=== PATIENT | male | born 1995 | race Hispanic/Latino ===

== ENCOUNTER 2021-08-25 09:13 | Emergency (ER) | payer SELFPAY ==
--- NOTE | 2021-08-25 09:52 | RAD REPORT ---
EXAM DESCRIPTION: CT - Head Brain Wo Cont - 08/25/2021 9:41 am CLINICAL HISTORY: HEADACHE COMPARISON: No comparisons TECHNIQUE: All CT scans are performed using dose optimization technique as appropriate and may inclu de automated exposure control or mA/KV adjustment according to patient size. FINDINGS: No intracranial hemorrhage, hydrocephalus or extra-axial fluid collection.No areas of brai n edema or evidence of midline shift. Partially opacified left maxillary sinus. This is likely the sequela of chronic sinusitis. The calvar ium is intact. IMPRESSION: No acute intracranial abnormality.
[2021-08-25] MEDS ORDERED: NA CHLORIDE 0.9% 1,000 ML ONE (10:01)
[2021-08-25 10:09] LABS: Absolute Lymphocytes (CBC) 1.3 K/uL (0.7-4.9); Basophils % 0.3 % (0-1.3); Hematocrit 38.9 % (39.6-49.0); Lymphocytes % 16.9 % (15.3-44.8); MPV 8.7 fL (7.6-11.3); RBC Red Blood Cell Count 4.79 M/uL (4.33-5.43)
[2021-08-25 10:23] LABS: BUN Blood Urea Nitrogen 10 mg/dL (7-18); Bicarbonate 27 mmol/L (21-32); Glucose Level 118 mg/dL (74-106); Potassium 3.8 mmol/L (3.5-5.1); Sodium Level 138 mmol/L (136-145)
[2021-08-25] MEDS ORDERED: KETOROLAC 30 MG/ML INJ ONE (10:46)
--- NOTE | 2021-08-25 11:33 | EDPHYS ---
Physician Documentation [facility] Name: Deshawn Cheung Age: 26 yrs Sex: Male : 1995 Arrival Date: 08/25/2021 Time: 09:14 Bed 12 Private MD: ED Physician Olayinka Fisher HPI: 08/25 16:51 This 26 yrs old Male presents to ER via Ambulatory with complaints of kb Headache, Weakness. 16:51 The patient complains of pain to the top of head. The patient describes the headache as kb constant. Onset: The symptoms/episode began/occurred 1 month(s) ago. Associated signs and symptoms: The patient has no apparent associated signs or symptoms. Severity of symptoms: At its worst the pain was mild, moderate, in the emergency department the pain is unchanged. Headache History: Denies prior headaches. The symptoms are alleviated by nothing. the symptoms are aggravated by activity. The patient has not experienced similar symptoms in the past. The patient has not recently seen a physician. Pt reports headache that has been constant for a month. Denies any other symptoms. Historical: - Allergies: 09:31 No Known Allergies; oh - Immunization history:: Adult Immunizations up to date. - Social history:: Patient uses street drugs, marijuana, Smoking status: Reported history of juuling and/or vaping. ROS: 16:51 Constitutional: Negative for fever, chills, and weight loss. kb 16:51 Neuro: Positive for headache. 16:51 All other systems are negative. Exam: 16:51 Constitutional: This is a well developed, well nourished patient who is awake, alert, kb and in no acute distress. Head/Face: Normocephalic, atraumatic. Eyes: Pupils equal round and reactive to light, extra-ocular motions intact. Lids and lashes normal. Conjunctiva and sclera are non-icteric and not injected. Cornea within normal limits. Periorbital areas with no swelling, redness, or edema. ENT: Moist Mucous membranes Cardiovascular: Regular rate and rhythm with a normal S1 and S2. No gallops, murmurs, or rubs. No pulse deficits. Respiratory: Respirations even and unlabored. No increased work of breathing, no retractions or nasal flaring. Skin: Warm, dry with normal turgor. Normal color. MS/ Extremity: Pulses equal, no cyanosis. Neurovascular intact. Full, normal range of motion. Neuro: Awake and alert, GCS 15, oriented to person, place, time, and situation. Moves all extremities. Normal gait. Psych: Awake, alert, with orientation to person, place and time. Behavior, mood, and affect are within normal limits. Vital Signs: 09:29 BP 119 / 88; Pulse 83; Resp 17; Temp 98.6; Pulse Ox 100% on R/A; oh 09:32 Weight 99.79 kg; Height 5 ft. 11 in. (180.34 cm); Pain 5/10; sv 11:41 BP 122 / 66; oh 09:32 Body Mass Index 30.68 (99.79 kg, 180.34 cm) sv Elliott Coma Score: 16:50 Eye Response: spontaneous(4). Verbal Response: oriented(5). Motor Response: obeys kb commands(6). Total: 15. MDM: 09:28 Patient medically screened. kb 16:50 Data reviewed: vital signs, nurses notes. Data interpreted: Pulse oximetry: on room air kb is 100 %. Interpretation: normal. Counseling: I had a detailed discussion with the patient and/or guardian regarding: the historical points, exam findings, and any diagnostic results supporting the discharge/admit diagnosis, lab results, radiology results, the need for outpatient follow up, a family practitioner, a neurologist, to return to the emergency department if symptoms worsen or persist or if there are any questions or concerns that arise at home. 08/25 09:31 Order name: CBC with Diff kb 08/25 09:31 Order name: Basic Metabolic Panel kb 08/25 09:31 Order name: CT Head Brain wo Cont; Complete Time: 10:14 kb 08/25 09:32 Order name: CBC with Automated Diff; Complete Time: 10:14 EDMS 08/25 09:32 Order name: Basic Metabolic Panel; Complete Time: 10:28 EDMS 08/25 09:31 Order name: IV Start; Complete Time: 09:53 kb Administered Medications: 09:50 Drug: NS 0.9% 1000 ml Route: IV; Rate: 1000 ml; Site: right antecubital; oh 10:25 Drug: Ketorolac 30 mg Route: IVP; Site: right antecubital; oh 11:43 Follow up: Response: No adverse reaction oh Disposition: 18:34 Co-signature as Attending Physician, Olayinka Fisher MD I agree with the assessment and rn plan of care. Attestation: The patient's history, exam findings, diagnostics, and a summary of any interventions or procedures was reviewed in detail with Maryellen CARR. Disposition Summary: 08/25/21 11:32 Discharge Ordered Location: Home kb Condition: Stable kb Diagnosis - Headache kb Followup: kb - With: Emergency Department - When: As needed - Reason: Worsening of condition Followup: kb - With: Private Physician - When: 2 - 3 days - Reason: Recheck today's complaints, Continuance of care, Re-evaluation by your physician Discharge Instructions: - Discharge Summary Sheet kb - General Headache Without Cause, Pust-gi-Amtl kb Forms: - Medication Reconciliation Form kb - Thank You Letter kb - Antibiotic Education kb - Prescription Opioid Use kb Signatures: Dispatcher [employer] EDMaryellen Sierra FNP-C FNP-Kavita Davis RN RN sv Nieto, Roman, MD MD rn Harriott, Oneka, RN RN oh
--- NOTE | 2021-08-25 11:33 | ER ---
Nurse's Notes [facility] Name: Deshawn Cheung Age: 26 yrs Sex: Male : 1995 Arrival Date: 08/25/2021 Time: 09:14 Bed 12 Private MD: Diagnosis: Headache Presentation: 08/25 09:32 Chief complaint: Patient states: migraine x 1 month with increased pressure when he sv sits up or raises eyebrows. Coronavirus screen: Vaccine status: Patient reports being unvaccinated. Client denies travel out of the [place] in the last 14 days. Ebola Screen: No symptoms or risks identified at this time. Initial Sepsis Screen: Does the patient meet any 2 criteria? No. Patient's initial sepsis screen is negative. Does the patient have a suspected source of infection? No. Patient's initial sepsis screen is negative. Risk Assessment: Do you want to hurt yourself or someone else? Patient reports no desire to harm self or others. Onset of symptoms was July 2021. 09:32 Method Of Arrival: Ambulatory sv 09:32 Acuity: ALEJO 4 sv Triage Assessment: 11:42 General: Appears comfortable, Behavior is calm, cooperative, appropriate for age. oh 11:42 Headache History: Denies prior headaches. oh 11:44 Pain: Pain Pain began weeks. oh Historical: - Allergies: 09:31 No Known Allergies; oh - Immunization history:: Adult Immunizations up to date. - Social history:: Patient uses street drugs, marijuana, Smoking status: Reported history of juuling and/or vaping. Screenin:32 Abuse screen: Denies threats or abuse. Nutritional screening: No deficits noted. oh Tuberculosis screening: No symptoms or risk factors identified. Fall Risk None identified. Assessment: 09:29 Neuro: Reports headache since month, increase pressure when rising from supine position.oh Vital Signs: 09:29 BP 119 / 88; Pulse 83; Resp 17; Temp 98.6; Pulse Ox 100% on R/A; oh 09:32 Weight 99.79 kg; Height 5 ft. 11 in. (180.34 cm); Pain 5/10; sv 11:41 BP 122 / 66; oh 09:32 Body Mass Index 30.68 (99.79 kg, 180.34 cm) sv Elliott Coma Score: 16:50 Eye Response: spontaneous(4). Verbal Response: oriented(5). Motor Response: obeys kb commands(6). Total: 15. ED Course: 09:14 Patient arrived in ED. ds1 09:21 Álvaro Vergara, RN is Primary Nurse. oh 09:28 Maryellen Nash F[facility]-C [facility]. kb 09:28 Olayinka Fisher MD is Attending Physician. kb 09:32 Pulse ox on. NIBP on. oh 09:33 Triage completed. sv 09:40 CT Head Brain wo Cont In Process Unspecified. EDMS 09:53 Basic Metabolic Panel Sent. oh 09:53 CBC with Diff Sent. oh 09:53 Inserted saline lock: 20 gauge in left antecubital area, using aseptic technique. Blood oh collected. 11:41 IV discontinued, bleeding controlled, Pressure dressing applied. oh 11:42 Bed in low position. Call light in reach. oh 11:44 No provider procedures requiring assistance completed. oh Administered Medications: 09:50 Drug: NS 0.9% 1000 ml Route: IV; Rate: 1000 ml; Site: right antecubital; oh 10:25 Drug: Ketorolac 30 mg Route: IVP; Site: right antecubital; oh 11:43 Follow up: Response: No adverse reaction oh Outcome: 11:32 Discharge ordered by MD. kb 11:38 Patient left the ED. aj2 11:42 Discharged to home oh 11:42 Condition: stable 11:42 Discharge instructions given to patient. Signatures: Dispatcher [employer] EDMS Maryellen Nash FNP-C FNP-Ckb Verde, Stephanie, RN RN sv Sanford, Demi ds1 Rosalva Walters aj2 Álvaro Vergara, RN RN oh
[2021-08-25 11:44] VITALS: BP 119/88; TEMP 98.6; O2SAT 100
== END 2021-08-25 11:38 | disposition home or self-care (01) ==
LOC: ER 09:13
DX: R51.9 Headache, unspecified (principal)
CPT/HCPCS: 36415; 70450; 80048; 85025; 96374; 99284; J7030